=== PATIENT | male | born 1975 | race Caucasian/White ===

== ENCOUNTER → 2016-07-06 | Outpatient (CLI) | payer MEDICARE, MEDICAID ==
[~2016-07-06] MED LIST: ANTIVERT-DPS25 MG PO; CIPRO DPS500 MG PO; CYMBALTA30 MG PO; CYMBALTA60 MG PO; FELBAMATE600 MG PO; FLEXERIL DPS5 MG PO; FLOMAX DPS0.4 MG PO; IRON325 M1 PO; LAMICTAL DPS100 MG PO; LAMICTAL150 MG PO; NORCO 5-325 TA1 EACH PO; PRILOSEC DPS20 MG PO; PYRIDIUM200 MG PO; VIMPAT150 MG PO; VIMPAT50 MG PO; ZONEGRAN100 MG PO; [UNRECOGNIZED DRUG - OTHER] PO
== END | disposition home or self-care (01) ==
LOC: PTH.S 07-05 11:00
DX: G40.219 Localization-related (focal) (partial) symptomatic epilepsy and epileptic syndromes with complex partial seizures, intractable, without status epilepticus (principal); Z92.29 Personal history of other drug therapy

== ENCOUNTER 2016-08-08 08:20 | Inpatient (IN) | payer MEDICARE, MEDICAID | END 2016-08-12 14:20 | disposition home or self-care (01) | DRG 983 | DX: J95.811 Postprocedural pneumothorax (principal); M48.02 Spinal stenosis, cervical region; F32.9 Major depressive disorder, single episode, unspecified; Z45.42 Encounter for adjustment and management of neurostimulator; G40.909 Epilepsy, unspecified, not intractable, without status epilepticus; K21.9 Gastro-esophageal reflux disease without esophagitis; G47.33 Obstructive sleep apnea (adult) (pediatric) ==